=== PATIENT | male | born 1975 | race Caucasian/White ===

== ENCOUNTER 2016-07-05 13:55 | Emergency (ER) | payer OTHER ==
[~2016-07-05] VITALS: Ht 180.3 cm; Wt 128.8 kg
[2016-07-05 14:43] LABS: ABSOLUTE NEUTROPHILS 11.3 thou/uL (1.4-8.2); BASOPHILS 0.7 % (0.0-2.0); EOSINOPHILS 1.2 % (0.0-3.0); HEMATOCRIT 41.4 % (42.0-52.0); HEMOGLOBIN 14.4 gm/dL (14.0-18.0); LYMPHOCYTES 13.9 % (24.0-44.0); MANUAL DIFF NO; MCH 32.6 pg (26.0-34.0); MCHC 34.8 g/dL (28.0-37.0); MCV 93.8 fL (80.0-100.0); MONOCYTES 6.6 % (1.0-8.0); PLATELET COUNT 329 thou/uL (150-400); POLYS 77.6 % (36.0-66.0); RBC 4.42 mil/uL (4.50-6.00); RDW 12.6 % (10.5-14.5); WBC 14.5 thou/uL (4.0-11.0)
[2016-07-05 14:56] LABS: CREATININE 1.1 mg/dL (0.7-1.3)
[2016-07-05 15:01] LABS: ALBUMIN 3.9 g/dL (3.4-5.0); TOTAL BILIRUBIN 0.6 mg/dL (<0.1-1.0); TOTAL PROTEIN 7.1 g/dL (6.4-8.2); URIC ACID* 9.3 mg/dL (2.6-7.2)
[2016-07-05] MEDS ORDERED: NORCO 5-325 TA1 EACH PO (16:21)
[2016-07-05] MEDS ORDERED: INDOMETHACIN 2525 MG PO (16:21)
[2016-07-05] MEDS ORDERED: COLCHICINE0.6 MG PO (16:21)
[2016-07-05 17:09] LABS: BF NUCLEATED CELLS 12830; BF RBC 1735
[2016-07-05 17:10] LABS: CLARITY CLOUDY; COLOR YELLOW; TOTAL VOLUME 40 mL
[2016-07-05 17:15] VITALS: BP 144/81
[2016-07-05 22:58] LABS: MANUAL DIFF YES
[2016-07-05 22:59] LABS: BF MACROPHAGE 7; BF NEUTROPHILS 92
[2016-07-06 04:11] LABS: BF CRYSTALS Negative (None seen)
[2016-07-06 15:08] LABS: BODY FLUID GLUCOSE 75 mg/dL (())
== END 2016-07-05 18:14 | disposition home or self-care (01) ==
LOC: ER 13:55
PROVIDERS: Emergency Medicine
DX: M10.061 Idiopathic gout, right knee (principal)